=== PATIENT | female | born 2000 | race Caucasian/White ===

== ENCOUNTER 2024-04-09 09:49 | Emergency (ER) | payer OTHER ==
[~2024-04-09] VITALS: Ht 160 cm; Wt 55.8 kg
[2024-04-09 09:56] VITALS: BP_SYST 118; PULSE 115; RESP 22; TEMP 99; O2SAT 98
[2024-04-09 10:29] LABS: BASOPHILS % (AUTO) 0.3 % (0.0-2.0); EOSINOPHILS % (AUTO) 0.6 % (0.0-4.0); HEMATOCRIT 34.9 % (36-48); HEMOGLOBIN 11.5 g/dL (12.0-16.0); LYMPHOCYTES # (AUTO) 1.7 K/uL (1.0-5.5); LYMPHOCYTES % (AUTO) 27.7 % (20.5-51.5); MEAN CORPUSCULAR HEMOGLOBIN 28 pg (27-31); MEAN CORPUSCULAR HGB CONC 33 % (32-36); MEAN CORPUSCULAR VOLUME 86 fL (79.0-98.0); MONOCYTES # (AUTO) 0.7 K/uL (0.0-1.0); NEUTROPHILS # (AUTO) 3.6 K/uL (1.8-7.7); NEUTROPHILS % (AUTO) 60.4 % (40.0-70.0); PLATELET COUNT (AUTO) 206 K/uL (130-430); RED BLOOD CELL COUNT(AUTO) 4.05 MIL/uL (4.2-6.2)
[2024-04-09 10:32] LABS: BILIRUBIN,URINE NEGATIVE (NEGATIVE); BLOOD, URINE 3+ (NEGATIVE); CLARITY/URINE CLEAR (CLEAR); COLOR,URINE YELLOW (YELLOW); GLUCOSE,URINE NEGATIVE (NEGATIVE); KETONES,URINE NEGATIVE (NEGATIVE); LEUKOCYTE ESTERASE ,URINE NEGATIVE (NEGATIVE); NITRITE, URINE NEGATIVE (NEGATIVE); PROTEIN URINE NEGATIVE (NEGATIVE); UROBILINOGEN,URINE 0.2 (0.2-1.0)
[2024-04-09 10:41] LABS: SERUM HCG (QUALITATIVE) NEGATIVE (NEGATIVE)
[2024-04-09 10:46] LABS: ALANINE AMINOTRANSFERASE 21 U/L (12-78); ANION GAP 6 (5-15); ASPARTATE AMINOTRANSFERASE 29 U/L (10-37); CARBON DIOXIDE 29 mmol/L (23-29); CHLORIDE 104 mmol/L (98-107); CREATININE 0.62 mg/dL (0.55-1.30); GFR AFRICAN AMERICAN 150 mL/min (>90); GFR NON AFRICAN-AMERICAN 124 mL/min (>90); GLUCOSE 87 mg/dL (74-106); INR 0.9 (0.8-1.2); POTASSIUM 3.9 mmol/L (3.5-5.1); PROTHROMBIN TIME 9.8 SECS (9.5-12.5); SODIUM SERUM 139 mmol/L (136-145); TOTAL BILIRUBIN 0.5 mg/dL (0.0-1.0); UREA NITROGEN, BLOOD 7 mg/dL (8-21)
[2024-04-09 11:07] LABS: BACTERIA,URINE RARE /HPF (None Seen); WBC,URINE 0-3 /HPF (0-3)
[2024-04-09 11:22] LABS: AMYLASE 27 U/L (0-100); BILIRUBIN,DIRECT 0.1 mg/dL (0.0-0.3); LIPASE 19 U/L (16-77)
[2024-04-09] MEDS: IBUPROFEN 800 MG TABLET PO ONE (12:58)
[2024-04-09 13:03] VITALS: BP_SYST 102; PULSE 80; RESP 16; TEMP 98; O2SAT 100
== END 2024-04-09 13:05 | disposition home or self-care (01) ==
LOC: SED 09:49
DX: R10.30 Lower abdominal pain, unspecified (principal); R50.9 Fever, unspecified; R30.0 Dysuria; R31.9 Hematuria, unspecified
CPT/HCPCS: 36415; 80048; 80076; 81000; 81001; 81015; 81025; 82150; 83605; 83690; 84703; 85025; 85610; 85730; 99284